=== PATIENT | female | born 1965 ===

== ENCOUNTER 2024-12-15 08:09 | Outpatient (REF) | payer OTHER, SELFPAY ==
--- NOTE | ~2024-12-15 | XR_ITS ---
EXAMINATION: XR KNEE 3 VIEWS LEFT HISTORY: M25.569 - Pain in unspecified knee COMPARISON: There are no prior studies available for comparison. FINDINGS: Standing AP views of both knees and additional lateral and sunrise patellar views of the left knee are submitted. Osseous mineralization is normal. There is no fracture or dislocation. There is mild narrowing of the patellofemoral compartment. There is a 6 mm probable loose body in the posterior aspect of the joint space. The soft tissues are unremarkable. There is no joint effusion. XR/XR knee LT 3V IMPRESSION: Mild narrowing of the lateral compartment. Probable 6 mm loose body. Electronically signed by: Jose Magallon MD 12/15/2024 01:19 PM EDT
== END 2024-12-15 08:10 | disposition home or self-care (01) ==
LOC: HO.HOSX 08:09
PROVIDERS: Visit Provider Physician Assistant
DX: M25.562 Pain in left knee (principal)
CPT/HCPCS: 73562; 99202

== ENCOUNTER 2024-12-15 11:14 | Outpatient (AMB) | payer OTHER, SELFPAY ==
--- NOTE | 2024-12-15 11:30 | MHC.OFFVIS ---
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 No history of injury. Patient reports ongoing pain for about a year. She mentions that her pain is worse after walking for 10 min. Patient notices that her pain is on the anterior aspect of the knee and it moves to the back of her knee. Patient doesn't have pain at the moment and would like to know what she can do for the pain when she gets it. Patient hasn't taken any medications for the pain. Allergies Penicillins Adverse Reaction (Verified 12/15/24 11:35) Rash HPI HPI OPERATIONS PROCESSOR-Lt knee pain: Details: Ms. Munoz is a 59-year-old female who presents to the office today for chronic left knee pain for the past 2 years. She denies any injury or trauma to the area. She reports that she had an x-ray done in [facility] which revealed wearing of the knee. She is looking to see if there are any additional recommendations for her care. [facility] Social History (Updated 12/15/24 @ 11:35 by Jena Perkins) Alcohol intake: never Patient Tobacco Use Status: Never used Tobacco Current occupational status: unemployed Review of Systems Const All systems reviewed & are unremarkable except as noted in HPI and below Physical Exam Const General: cooperative, healthy appearing and no acute distress Resp Effort & Inspection: normal respiratory effort and able to speak in complete sentences Extrem Other: Left knee normal to inspection. No ecchymosis, erythema or joint effusion. No tenderness to palpation medial and lateral joint lines. Full range of motion. Negative Valentín's. Crepitus felt with range of motion. NVI. Assessment & Plan Assessment & Plan (1) Osteoarthritis of left knee: Code(s): M17.12 - Unilateral primary osteoarthritis, left knee Category: Medical Plan While the office today, the patient is not experiencing any pain. She reports that her pain is worse when she is ambulating for long periods of time or standing on her feet for long periods of time. We discussed the role of cortisone injection, anti-inflammatories and knee bracing. As the patient is not having any pain at this time we deferred a cortisone injection anti-inflammatories. I have recommended a genumed knee brace which were office provided to the patient off the shelf. She will wear this during activities. Should her pain worsen and she is unable to perform normal activities she will contact our office for a cortisone injection. Otherwise, she will follow up PRN, sooner if needed. X-rays of the left knee which were obtained while in the office today and were reviewed by me, Katia Jensen PA-C, revealed osteoarthritis. Orders: Orders XR knee LT 3V Today M25.569 - Pain in unspecified knee Coding Level of Care Code New Pt Level 3 (42956) Diagnoses Osteoarthritis of left knee M17.12
== END 2024-12-15 11:57 | disposition home or self-care (01) ==
PROVIDERS: Visit Provider Physician Assistant
DX: M17.12 Unilateral primary osteoarthritis, left knee (principal)
CPT/HCPCS: 99203

== ENCOUNTER → 2024-12-15 11:18 | Outpatient (BNV) | payer OTHER, SELFPAY | PROVIDERS: Visit Provider Radiology Diagnostic Radiology | DX: M22.2X2 Patellofemoral disorders, left knee (principal) | CPT/HCPCS: 73562 ==

== ENCOUNTER 2025-01-20 13:57 | Outpatient (AMB) | payer OTHER, SELFPAY ==
--- NOTE | 2025-01-20 14:00 | A.OFFVIS_ITS ---
Vital Signs 01/20/25 14:03 Height 4 ft 11.06 in Weight 137 lb BMI 27.6 Handedness Right Intake Visit Reasons: New prob- Right ring trigger finger Intake Note: Angle is a 59 year old right hand dominant female who presents for a new problem visit complaining of right ring finger locking and catching. Patient states it started about a year ago but it has worsened since. She states someties she wakes up with her finger locked. She feels it is now causing pain at the PIP. Denies numbness, tingling. Denies any previous treatments. Allergies Penicillins Adverse Reaction (Verified 12/15/24 11:35) Rash HPI HPI New prob- Right ring trigger finger: Details: Angle is a 59 year old right hand dominant female who presents for a new problem visit complaining of right ring finger locking and catching. Patient sta yang it started about a year ago but it has worsened since. She states someties she wakes up with her finger locked. She feels it is now causing pain at the PIP. Denies numbness, tingling. Denies any previous treatments. [facility] Social History (Updated 12/15/24 @ 11:35 by Jena Perkins) Alcohol intake: never Patient Tobacco Use Status: Never used Tobacco Current occupational status: unemployed Review of Systems Const All systems reviewed & are unremarkable except as noted in HPI and below Physical Exam Vital Signs: BMI result Body Mass Index 27.6 Extrem Other: Patient is alert, oriented, and in no acute distress. Neuro: Normal sensation of the tips of all digits of the right hand at this time Vascular: Cap refill brisk Pain: Tenderness to palpation of the A1 isaias of the right ring finger Pain with locking and catching of the right ring finger ROM: There is a visible and palpable locking and catching of the right ring finger in a flexed position Skin: No lacerations or abrasions. General: No ecchymosis, erythema, or evidence of infection. Psych: Appears grossly normal Affect normal Attitude cooperative Office Procedures AMB Tendon Injection Tendon Injection [id number] Tendon Sheath Injection All charges added?: Procedure code (CPT) selection complete Assessment & Plan Assessment & Plan (1) Trigger finger, right ring finger: Code(s): M65.341 - Trigger finger, right ring finger Category: Medical Plan 1. Right ring finger trigger finger Patient is educated about this condition Patient is educated about treatment options available Patient is a to proceed with steroid injection The risks and benefits of a steroid injection including but not limited to risk of damage to blood vessels, nerves, tendons, infection, skin bleaching, failure to improve symptoms, increased pain, and possible need for further injections or other intervention were discussed with the patient and the patient wishes to proceed with the steroid injection. Once consent was obtained, I sterilely prepped the area over the A1 isaias of the flexor tendon sheath of the right ring finger. I then injected the flexor tendon sheath with a combination of 1 mL of dexamethasone (4mg/ml), and 1% lidocaine. The patient tolerated the procedure well with no complications. If the patient continues to have locking and catching 4-6 weeks following this injection, they may call to schedule appointment to discuss alternative treatment options Follow-up prn Coding Level of Care Code Est Pt Level 3 (43875) Diagnoses Trigger finger, right ring finger M65.341 CPT Codes Tendon Injection - Tendon Injection 1: [id number] Tendon Sheath Injection ([id number])
[2025-01-20 14:03] VITALS: BMI 27.6
== END 2025-01-20 14:46 | disposition home or self-care (01) ==
LOC: HO.HOS 13:57
DX: M65.341 Trigger finger, right ring finger (principal)
CPT/HCPCS: 20550; 99213

== ENCOUNTER → 2025-01-20 13:57 | Outpatient (BNVA) | payer OTHER, SELFPAY | DX: M65.341 Trigger finger, right ring finger (principal) | CPT/HCPCS: 20550; 99212; J1100; J2003 ==

== ENCOUNTER 2025-04-10 10:32 | Outpatient (AMB) | payer OTHER, SELFPAY ==
--- NOTE | 2025-04-10 10:43 | A.OFFVIS_ITS ---
Intake Visit Reasons: OV - left knee OA Intake Note: Angle is a 59 year old female who presets today for a follow up of her left knee osteoarthritis. Patient reports she is interested in injections. Allergies Penicillins Adverse Reaction (Verified 04/10/25 10:45) Rash HPI HPI OV - left knee OA: Details: Ms. Munoz this is a 59-year-old female who presents to the office today for follow up of left knee pain. Pain has been present for the past 2 years. At her last appointment on 12/15/2024 she was offered a cortisone injection which she declined at that time. She is interested in cortisone injection today. [facility] Social History (Updated 12/15/24 @ 11:35 by Jena Perkins) Alcohol intake: never Patient Tobacco Use Status: Never used Tobacco Current occupational status: unemployed Review of Systems Const All systems reviewed & are unremarkable except as noted in HPI and below Physical Exam Const General: cooperative, healthy appearing and no acute distress Resp Effort & Inspection: normal respiratory effort and able to speak in complete sentences Extrem Other: Left knee normal to inspection. No ecchymosis, erythema or joint effusion. No tenderness to palpation medial and lateral joint lines. Full range of motion. Negative Valentín's. Crepitus felt with range of motion. NVI. Office Procedures AMB Joint Injection/Aspiration Joint Injection/Aspiration Primary Site: Left Knee Prep: site was prepped using aseptic technique, ethochloride spray was applied and injection warnings given Injected: 40 mg of, Decadron, with 3 mL of, 1% plain Lidocaine, 0.25% Bupivacaine and in the joint Approach Used: anterolateral Procedure: The patient tolerated the procedure well, but had some pain with the injection and there was some relief with the local anesthesia Coding 89914 - Large joint Procedure code (CPT) selection complete Assessment & Plan Assessment & Plan (1) Osteoarthritis of left knee: Code(s): M17.12 - Unilateral primary osteoarthritis, left knee Category: Medical Plan Ms. Alexander andino is a 59-year-old female who presents to the office today for follow up of left knee pain. Pain has been present for the past 2 years. At her last appointment on 12/15/2024 she was offered a cortisone injection which she declined at that time. She is interested in cortisone injection today. The patient was offered a cortisone injection in the left knee. The patient was explained the risks, benefits, and alternatives to receiving this injection. After receiving consent for the injection, the patient had the procedure done while in the office today. The patient tolerated the procedure well with no complications. Follow-up will be PRN, or sooner if needed Coding Level of Care Code Est Pt Level 3 (82483) Diagnoses Osteoarthritis of left knee M17.12 CPT Codes Coding - 09155 Large joint: 23921 - Large joint ([id number])
== END 2025-04-10 11:41 | disposition home or self-care (01) ==
LOC: HO.HOS 10:33
PROVIDERS: Visit Provider Physician Assistant
DX: M17.12 Unilateral primary osteoarthritis, left knee (principal)
CPT/HCPCS: 20610; 99213

== ENCOUNTER → 2025-04-10 10:32 | Outpatient (BNVA) | payer OTHER, SELFPAY | PROVIDERS: Visit Provider Physician Assistant | DX: M17.12 Unilateral primary osteoarthritis, left knee (principal); M25.562 Pain in left knee | CPT/HCPCS: 20610; 99212; J0665; J1100; J2003 ==